=== PATIENT | male | born 1980 | race Caucasian/White ===

== ENCOUNTER 2017-06-09 23:24 | Emergency (ER) | payer BC ==
[~2017-06-09] VITALS: Ht 193 cm; Wt 83.9 kg
[2017-06-09 23:43] VITALS: BP 115/85
[2017-06-10] MEDS ORDERED: TRAMADOL 50 MG50 MG PO (00:18)
[2017-06-10] MEDS ORDERED: NAPROSYN500 MG PO (00:18)
== END 2017-06-10 00:28 | disposition home or self-care (01) ==
LOC: ER 23:24
DX: S90.01XA Contusion of right ankle, initial encounter (principal); F17.210 Nicotine dependence, cigarettes, uncomplicated; X58.XXXA Exposure to other specified factors, initial encounter; Y93.64 Activity, baseball; Y92.89 Other specified places as the place of occurrence of the external cause; Y99.8 Other external cause status